=== PATIENT | female | born 1985 | race Two or more races ===

== ENCOUNTER → 2016-11-26 | Outpatient (CLI) | payer BC ==
[~2016-11-26] VITALS: Ht 170.2 cm; Wt 76.7 kg
[~2016-11-26] MED LIST: IBUPROFEN600 MG ORAL; [UNRECOGNIZED DRUG - REMARK]
[2016-11-26 14:12] VITALS: BP 93/53
--- NOTE | 2016-11-26 14:25 | General Progress Note ---
Assessment/Plan Problem List: (1) Abdominal pain ICD Codes: R10.9 - Unspecified abdominal pain SNOMED: 95340359 Assessment/Plan breath test for H pylori RTC after above consider ppi if HP negative and EGD if no response to ppi Subjective ROS Limited/Unobtainable: Yes Allergies: Coded Allergies: No Known Allergies (Unverified , 06/13/15) Subjective c/o epigastric abd pain Objective Last 24 Hour Vital Signs Date Time Temp Pulse Resp B/P (MAP) Pulse Ox O2 Delivery O2 Flow Rate FiO2 11/26/16 14:12 97.9 76 16 93/53 General Appearance: alert EENT: normal ENT inspection Neck: supple Cardiovascular: normal rate Respiratory/Chest: lungs clear Abdomen: normal bowel sounds, non tender, soft Extremities: non-tender TOBY BURGOS Nov 26, 2016 14:25
== END | disposition home or self-care (01) ==
LOC: PAN 13:15
DX: R10.9 Unspecified abdominal pain (principal)
CPT/HCPCS: 99201

== ENCOUNTER → 2016-12-17 | Outpatient (CLI) | payer BC ==
--- NOTE | 2016-12-17 13:47 | GI Progress Note ---
Assessment/Plan Problems: (1) H. pylori infection ICD Codes: A04.8 - Other specified bacterial intestinal infections SNOMED: 110346968 (2) Abdominal pain ICD Codes: R10.9 - Unspecified abdominal pain SNOMED: 58382795 Status: stable Status Narrative Seen with Dr. Johnson. Assessment/Plan BT positive for H. Pylori >> tx given RTC x 3 months for retest Subjective Subjective epigastric pain has resolved after urgent care visit where they prescribed her pepcid and carafate Objective T 98.2 101/42 P 81 98 RA General Appearance: no apparent distress, alert Cardiovascular: normal rate Respiratory/Chest: normal breath sounds, no respiratory distress Abdominal Exam: normal bowel sounds, non tender, soft Extremities: normal range of motion Marine Rodriguez N.P. Dec 17, 2016 13:47
[2016-12-17 14:53] VITALS: BP 101/42
== END | disposition home or self-care (01) ==
LOC: PAN 12:59
DX: R10.9 Unspecified abdominal pain (principal); A04.8 Other specified bacterial intestinal infections
CPT/HCPCS: 99211

== ENCOUNTER 2018-02-11 07:20 | Emergency (ER) | payer BC, MEDICAID, OTHER ==
[~2018-02-11] VITALS: Ht 172.7 cm; Wt 83.9 kg
--- NOTE | 2018-02-11 07:57 | Emergency Room Report ---
History of Present Illness General Chief Complaint: Pain Source: Patient Present Illness HPI This patient states that she had started having right foot pain a couple weeks ago. She states that at first she thought maybe she stepped on something. However, over the last couple days the pain has become more severe. It is much worse when she stands or walks. She denies any known trauma. She denies fever or chills. She states it does appear somewhat swollen to her. 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 She has no other complaints. Allergies: Coded Allergies: No Known Allergies (Unverified , 06/13/15) Patient History Past Medical History: none, see triage record Social History: Reports: alcohol use - Occ; Denies: smoking, drug use Last Menstrual Period: 01/11/18 Now: No : 0 Para: 0 Reviewed Nursing Documentation: PMH: Agreed; PSxH: Agreed Nursing Documentation-PMH Past Medical History: No Stated History Hx Cardiac Problems: No Hx Cancer: No Hx Gastrointestinal Problems: No Hx Neurological Problems: No Review of Systems All Other Systems: negative except mentioned in HPI Physical Exam Vital Signs Date Time Temp Pulse Resp B/P (MAP) Pulse Ox O2 Delivery O2 Flow Rate FiO2 02/11/18 07:27 97.9 65 15 108/66 98 Room Air Sp02 EP Interpretation: reviewed, normal General Appearance: no apparent distress, alert, GCS 15, non-toxic Head: normocephalic, atraumatic Eyes: bilateral eye normal inspection, bilateral eye PERRL ENT: hearing grossly normal, normal pharynx, no angioedema, normal voice Neck: normal inspection Respiratory: no respiratory distress, no retraction, no accessory muscle use, speaking full sentences Rectal: deferred Musculoskeletal: back normal, normal range of motion, other - Medial R. foot at base of R. great toe ttp, ?swelling. Overlying blisters bilateral feet over balls of feet. Neurologic: alert, oriented x3, responsive, motor strength/tone normal, sensory intact, speech normal Psychiatric: judgement/insight normal, memory normal, mood/affect normal, no suicidal/homicidal ideation Skin: normal color, no rash, warm/dry, well hydrated Medical Decision Making Diagnostic Impression: Primary Impression: Corns and callus Additional Impression: Fracture of sesamoid bone of foot, closed ER Course The patient has obvious corns and calluses on her bilateral plantar surfaces of her feet. She is tender to palpation over the base of the great toe on the plantar surface of the foot distally and foot x-ray shows that there are fractures of her sesamoid bones which is likely a stress fracture based on history. I did give the patient crutches and a hard soled shoe with significant padding over the plantar aspect of the foot. I educated the patient to go obtain Dr. Lopez's callus removers and also instructed her to follow-up closely with a gas engine operator generators for possible orthesis and monitoring/ further treatment. She is also educated on supportive footwear and to stop wearing heels. Other X-Ray Diagnostic Results Other X-Ray Diagnostic Results : X-Ray ordered: R. foot # of Views/Limited Vs Complete: Complete Indication: Pain EP Interpretation: Yes Interpretation: other - Fx of sesamoid bone. See official report. Impression: Other - See above Electronically Signed by: Violette Last Vital Signs Date Time Temp Pulse Resp B/P (MAP) Pulse Ox O2 Delivery O2 Flow Rate FiO2 02/11/18 07:27 97.9 65 15 108/66 98 Room Air Status: improved Disposition: HOME, SELF-CARE Condition: Improved Cande Cunningham DO Feb 11, 2018 07:56
[2018-02-11] MEDS ORDERED: Ketorolac 60mg Inj IM ONE (08:00)
[2018-02-11 08:47] VITALS: BP 108/66
[2018-02-11] MEDS ORDERED: IBUPROFEN800 MG ORAL (09:27)
[2018-02-11] MEDS ORDERED: NKM (09:37)
[2018-02-11 10:01] VITALS: BP 108/66
--- NOTE | 2018-02-11 13:00 | Diagnostic Imaging Report ---
Indication: Pain x3 weeks, history of trauma Technique: 3 views right foot Comparison: none Findings: There is hallux valgus and metatarsus adductus. There is mild hammertoe deformity of the second through fifth digits. No acute fractures. No dislocations. There is a bipartite first metatarsal sesamoid. The joint spaces are preserved Impression: No acute process
== END 2018-02-11 10:03 | disposition home or self-care (01) ==
LOC: EMR 08:00
DX: L84 Corns and callosities (principal); S92.811A Other fracture of right foot, initial encounter for closed fracture; S90.822A Blister (nonthermal), left foot, initial encounter; S90.821A Blister (nonthermal), right foot, initial encounter; X58.XXXA Exposure to other specified factors, initial encounter; Y92.9 Unspecified place or not applicable; M20.11 Hallux valgus (acquired), right foot; M20.41 Other hammer toe(s) (acquired), right foot
CPT/HCPCS: 96372; 99283